=== PATIENT | female | born 1995 | race Caucasian/White ===

== ENCOUNTER 2018-06-21 17:57 | Emergency (ER) | payer SELFPAY ==
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
== END 2018-06-21 20:30 | disposition home or self-care (01) ==
LOC: JD.ED 17:57
DX: S01.81XA Laceration without foreign body of other part of head, initial encounter (principal); F17.210 Nicotine dependence, cigarettes, uncomplicated; V59.9XXA Occupant (driver) (passenger) of pick-up truck or van injured in unspecified traffic accident, initial encounter
CPT/HCPCS: 99284-25